=== PATIENT | male | born 1980 | race American Indian/Alaskan Native ===

== ENCOUNTER 2018-07-14 08:23 | Emergency (ER) | payer OTHER ==
[2018-07-14] MEDS ORDERED: ZOFRAN IV ONE (08:50)
[2018-07-14] MEDS ORDERED: NACL 0.9% 1000 ML 1,000 ML IV ONE (08:50)
--- NOTE | 2018-07-14 08:54 | Emergency Department Report ---
ED General Adult HPI - General Chief complaint: Nausea/Vomiting/Diarrhea Stated complaint: VOMITING Time Seen by Provider: 07/14/18 08:46 Source: patient, family Mode of arrival: Ambulatory Limitations: No Limitations - History of Present Illness Initial comments: Patient is a 37 years old male with no significant past medical history. Patient presented to the ER complaining of generalized body ache, nausea vomiting and watery diarrhea for the last 2 days. Patient is also having runny nose cough and congestion and fever. Patient denied any abdominal pain or chest pain. Severity scale (0 -10): 5 - Related Data Previous Rx's Medication Instructions Recorded Last Taken Type Ibuprofen [Motrin] 600 mg PO Q6H PRN #20 tablet 07/30/13 Unknown Rx Methocarbamol [Robaxin] 750 mg PO BID PRN #14 tab 07/30/13 Unknown Rx traMADol [Ultram] 50 mg PO Q6HR PRN #20 tablet 07/30/13 Unknown Rx Allergies Allergy/AdvReac Type Severity Reaction Status Date / Time No Known Allergies Allergy Unverified 07/30/13 19:01 ED Review of Systems ROS: Stated complaint: VOMITING Other details as noted in HPI Comment: All other systems reviewed and negative Constitutional: fever. denies: chills Respiratory: cough. denies: orthopnea, shortness of breath, SOB with exertion, SOB at rest, wheezing Cardiovascular: denies: chest pain, palpitations, dyspnea on exertion Gastrointestinal: nausea, vomiting, diarrhea. denies: abdominal pain, constipation, hematemesis, hematochezia Musculoskeletal: denies: back pain Neurological: denies: headache, weakness, numbness, paresthesias, confusion, abnormal gait ED Past Medical Hx - Past Medical History Previous Medical History?: Yes Additional medical history: club foot - Surgical History Past Surgical History?: Yes Additional Surgical History: foot repair - Social History Smoking Status: Never Smoker Substance Use Type: Alcohol - Medications Home Medications: Home Medications Medication Instructions Recorded Confirmed Last Taken Type Ibuprofen [Motrin] 600 mg PO Q6H PRN #20 tablet 07/30/13 Unknown Rx Methocarbamol [Robaxin] 750 mg PO BID PRN #14 tab 07/30/13 Unknown Rx traMADol [Ultram] 50 mg PO Q6HR PRN #20 tablet 07/30/13 Unknown Rx ED Physical Exam - General Limitations: No Limitations General appearance: alert, in no apparent distress - Head Head exam: Present: atraumatic, normocephalic, normal inspection - Eye Eye exam: Present: normal appearance, PERRL - ENT ENT exam: Present: mucous membranes dry - Neck Neck exam: Present: normal inspection, full ROM. Absent: tenderness, meningismus, lymphadenopathy, thyromegaly - Respiratory Respiratory exam: Present: normal lung sounds bilaterally - Cardiovascular Cardiovascular Exam: Present: regular rate, normal rhythm, normal heart sounds - GI/Abdominal GI/Abdominal exam: Present: soft, normal bowel sounds. Absent: distended, tenderness, guarding, rigid, organomegaly, mass, pulsatile mass, hernia - Extremities Exam Extremities exam: Present: normal inspection, full ROM, normal capillary refill. Absent: pedal edema, calf tenderness - Back Exam Back exam: Present: normal inspection, full ROM. Absent: tenderness, CVA tenderness (R), CVA tenderness (L), muscle spasm, paraspinal tenderness, vert ebral tenderness - Neurological Exam Neurological exam: Present: alert, oriented X3, CN II-XII intact, normal gait, reflexes normal - Skin Skin exam: Present: warm, intact, normal color ED Course Vital Signs 07/14/18 08:24 Temperature 98.8 F Pulse Rate 97 H Respiratory 18 Rate Blood Pressure 112/70 Blood Pressure 112/70 [Right] O2 Sat by Pulse 98 Oximetry ED Medical Decision Making - Lab Data Result diagrams: 07/14/18 08:59 07/14/18 08:59 - Medical Decision Making Patient is 37 years old male presented to the ER with a viral syndrome symptoms including generalized body pain, cough, nausea vomiting and watery diarrhea. Patient received 1 L normal saline, Zofran. Labs reviewed and is unremarkable. Chest x-ray is unremarkable also. Patient stated that he is feeling much better. I advised patient to follow up with his primary care physician in the next 2-3 days and to return to the ER if his symptoms are not improved. Critical care attestation.: If time is entered above; I have spent that time in minutes in the direct care of this critically ill patient, excluding procedure time. ED Disposition Clinical Impression: Viral syndrome, Dehydration Disposition: DC-01 TO HOME OR SELFCARE Is pt being admited?: No Condition: Stable Instructions: Viral Syndrome (ED) Referrals: [facility] [Other] - 3-5 Days
[2018-07-14 09:44] LABS: Hematocrit 42.9 % (35.5-45.6); Hemoglobin 14.8 gm/dl (11.8-15.2); Mean Corpuscular HGB Conc 35 % (32-34); Mean Corpuscular Volume 84 fl (84-94); Platelet Count 177 K/mm3 (140-440); Red Blood Count 5.12 M/mm3 (3.65-5.03); Red Cell Distribution Width 13.5 % (13.2-15.2)
--- NOTE | 2018-07-14 09:46 | XRay Report ---
FINAL REPORT EXAM: XR CHEST 1V AP HISTORY: cough COMPARISON: None. TECHNIQUE: Single frontal view of the chest FINDINGS: The cardiomediastinal silhouette is normal in appearance. The lungs are clear without focal consolidation. There is no pleural effusion or pneumothorax. There is no acute soft tissue or osseous abnormality. IMPRESSION: No acute cardiopulmonary disease.
[2018-07-14 10:06] LABS: Alanine Aminotransferase 51 units/L (7-56); Albumin 4.4 g/dL (3.9-5); BUN/Creatinine Ratio 9; Blood Urea Nitrogen 9 mg/dL (9-20); Calcium 8.6 mg/dL (8.4-10.2); Hemolysis Index 6
[2018-07-14 10:10] LABS: Bilirubin,Direct < 0.2 mg/dL (0-0.2)
[2018-07-14 11:16] VITALS: BP 133/76
[2018-07-14 13:08] LABS: Total Cells Counted 100
[2018-07-14 13:09] LABS: Anisocytosis 1+; Platelet Estimate Consistent w Auto
== END 2018-07-14 11:14 | disposition home or self-care (01) ==
LOC: ED 08:23
DX: B34.9 Viral infection, unspecified (principal); E86.0 Dehydration
CPT/HCPCS: 36415; 71045; 80048; 80076; 85007; 85025; 87400; 96361; 96374; 99284; J2405; J7030